=== PATIENT | female | born 1970 | race Caucasian/White ===

== ENCOUNTER 2019-02-12 09:45 | Emergency (ER) | payer OTHER ==
[2019-02-12 10:18] LABS: #Eosinphils 0.1 thou/uL (0.0-0.7); #Lymphocytes 1.4 thou/uL (1.20-3.40); #Monocytes 0.4 thou/uL (0.11-0.59); #Neutrophils 2.4 thou/uL (1.40-6.50); %Basophils 0.4 % (0.0-1.0); %Eosinophils 1.6 % (0.0-10.0); %Lymphocytes 32.9 % (21.0-51.0); %Monocytes 9.2 % (0.0-10.0); %Neutrophils 55.9 % (42.0-75.0); Hemoglobin 12.8 g/dL (12.0-16.0); Mean Corpuscular HGB CONC 33.3 g/dL (32.0-36.0); Mean Corpuscular Volume 96.3 fL (78.0-98.0); Mean Platelet Volume 9.2 fL (7.4-10.4); Platelet Count 155 thou/uL (130-400); White Blood Cell (WBC) Count 4.2 thou/uL (4.8-10.8)
[2019-02-12 10:44] LABS: ALT (SGPT) 20 U/L (8-55); AST (SGOT) 18 U/L (5-34); Albumin 4.3 g/dL (3.5-5.0); Alkaline Phosphatase 124 U/L (40-150); Anion Gap 16 mmol/L (10-20); BUN (Urea Nitrogen) 15 mg/dL (7.0-18.7); Bilirubin, Total 0.8 mg/dL (0.2-1.2); CK (CPK) 75 U/L (29-168); Calc. Creatinine Clearance 0 mL/min (70-130); Calcium 9.3 mg/dL (7.8-10.44); Carbon Dioxide 24 mmol/L (22-29); Chloride 105 mmol/L (98-107); Estimated GFR-MDRD 86; Globulin 2.7 g/dL (2.4-3.5); Glucose 118 mg/dL (70-105); Magnesium 2.4 mg/dL (1.6-2.6); Potassium 4.5 mmol/L (3.5-5.1); Sodium 140 mmol/L (136-145)
[2019-02-12 10:48] LABS: Bilirubin Negative (Negative); Blood, Urine Negative (Negative); Clarity CLEAR (Clear); Glucose, Urine (Dipstick) Negative (Negative); Leukocyte Small (Negative); Nitrite Negative (Negative); Protein, Urine (Dipstick) Negative (Neg-Trace); Specific Gravity, Urine 1.003 (1.002-1.036); Urobilinogen 0.2 mg/dL (0.2-1.0); pH, Urine 7.5 (5.0-9.0)
[2019-02-12 10:58] LABS: Bacteria/HPF None Seen HPF (None Seen); Hyaline Casts/LPF NONE SEEN LPF (0-3 Hyaline); RBC/HPF None Seen HPF (0-3); Squamous Epithelial 0-3 HPF (0-3); WBC/HPF 0-3 HPF (0-3)
[2019-02-12] MEDS ORDERED: ISOVUE-370 76%-LOCM 1 ML ONE (11:27)
--- NOTE | 2019-02-12 11:28 | RAD ---
RADIOGRAPH CHEST 1 VIEW: DATE: 02/12/2019 HISTORY: 48-year-old female with palpitations and chest pain FINDINGS: There are no airspace densities, pulmonary edema, pneumothorax, or cardiomegaly. The lateral costophr enic angles are sharp. IMPRESSION: No acute cardiopulmonary findings.
--- NOTE | 2019-02-12 14:13 | CT ---
CT ANGIOGRAM OF CHEST: Date: 02/12/19 HISTORY: Chest pain. Patient has a history of liver cancer. COMPARISON: None. TECHNIQUE: CT angiogram of chest performed in the axial plane. Three dimensional reformatted images are submitte d for interpretation. FINDINGS: No mediastinal mass, lymphadenopathy, or hematoma. Heart size is within normal limits. No pericardial fluid. Visualized aorta has a normal caliber. Multiple heterogeneous masses throughout the liver. Largest heterogeneous mass appears to be in a res idual right hepatic lobe measuring 4.8 x 4.8 cm. There is a left hepatic lobectomy. There appears to be surgery at the level of the stomach, possibly bariatric in origin. Visualized kidneys are unremarkable. Visualized spleen and adrenal glands are grossly unremarkable. There is a hypodense mass emanating from the tail of the pancreas measuring 1.8 x 1.9 cm with attenua tion coefficient of 9 Hounsfield units. The possibility of a pancreatic cyst is raised. Confirmation with abdomen MRI or a pancreatic mass protocol CT can be performed. Adequate contrast opacification of the pulmonary arterial system to the level of the segmental arteri es. No filling defect to suggest thromboembolism. Trachea and central bronchi are patent. Dependent atelectatic changes. No suspicious masses or nodules in the left or right lung. No pleural effusion or pneumothorax. No lytic or blastic lesions in the osseous structures. IMPRESSION: 1. No evidence of pulmonary artery embolism to the level of the segmental arteries. 2. Multiple hepatic masses, worrisome for hepatic malignancy. 3. Hypodense mass emanating from the tail of the pancreas, which may represent a pancreatic cyst. Co nfirmation with pancreatic mass protocol CT or abdomen MRI can be performed on a nonemergent basis. POS: TIP
== END 2019-02-12 13:32 | disposition home or self-care (01) ==
LOC: ERS 09:45
DX: R00.2 Palpitations (principal); R16.0 Hepatomegaly, not elsewhere classified; K86.9 Disease of pancreas, unspecified; F17.210 Nicotine dependence, cigarettes, uncomplicated; F32.9 Major depressive disorder, single episode, unspecified; Z79.899 Other long term (current) drug therapy
CPT/HCPCS: 36415; 71045; 71275; 80053; 81003; 81015; 82550; 83735; 84443; 84484; 85025; 85379; 93005; Q9966

== ENCOUNTER 2019-02-27 08:14 | Day surgery (SDC) | payer OTHER ==
[2019-02-27] MEDS ORDERED: Fentanyl 100 MCG/2 ML VIAL ONE (08:28)
[2019-02-27] MEDS ORDERED: Midazolam HCl 2 mg/2 ml Vial ONE (08:28)
[2019-02-27] MEDS ORDERED: Sodium Bicarbonate 2.5 MEQ/5 ML VIAL ONE (08:28)
[2019-02-27] MEDS ORDERED: Lidocaine 1% PF 5 ML VIAL ONE (08:28)
[2019-02-27 09:00] LABS: #Basophils 0.1 thou/uL (0.0-0.2); #Eosinphils 0.1 thou/uL (0.0-0.7); #Lymphocytes 1.8 thou/uL (1.20-3.40); #Monocytes 0.3 thou/uL (0.11-0.59); #Neutrophils 2.3 thou/uL (1.40-6.50); %Basophils 1.6 % (0.0-1.0); %Eosinophils 1.7 % (0.0-10.0); %Lymphocytes 38.5 % (21.0-51.0); %Monocytes 7.5 % (0.0-10.0); %Neutrophils 50.8 % (42.0-75.0); Hemoglobin 12.2 g/dL (12.0-16.0); Mean Corpuscular HGB CONC 33.5 g/dL (32.0-36.0); Mean Corpuscular Volume 95.5 fL (78.0-98.0); Mean Platelet Volume 8.9 fL (7.4-10.4); Platelet Count 201 thou/uL (130-400); RBC Distribution Width 11.7 % (11.5-14.5); Red Blood Cell (RBC) Count 3.82 mill/uL (4.20-5.40); White Blood Cell (WBC) Count 4.6 thou/uL (4.8-10.8)
[2019-02-27 09:03] LABS: INR-International Normal Ratio 0.9; Prothrombin Time 12.6 SEC (12.0-14.7)
--- NOTE | 2019-02-27 11:23 | CT ---
CT ABDOMEN AND PELVIS WITH ORAL AND IV CONTRAST: Date: 02/27/19 HISTORY: Pancreatic tail mass. COMPARISON: CT abdomen and pelvis of 02/22/[address] pulmonary angiogram of 02/12/19. FINDINGS: The lung bases are clear. Postop changes of resection of the left lobe of the liver and part of the s tomach are again seen. Multiple heterogeneous masses in the liver noted on the CT pulmonary angiogram of 02/12/19 are again seen and are new since 2008, suspicious for metastatic disease. The low densit y mass in the tail of the pancreas has enlarged since 2008 and measures 2.3 x 2.2 x 2.0 cm. The splee n, adrenal glands, and kidneys are normal. No free air, free fluid, or lymphadenopathy is seen in the abdomen or pelvis. The small bowel loops are not abnormally dilated. A normal appearing appendix is present. A 2.0 cm lipoma is seen in the cecum. There is no evidence of aneurysmal dilatation of the abdominal aorta. There are postop changes of hys terectomy. IMPRESSION: 1. Findings are suspicious for hepatic metastases. 2. Interval enlargement of the pancreatic tail mass since 02/22/09. 3. Lipoma in the cecum. POS: TPC
[2019-02-27 11:42] VITALS: BP 145/85; TEMP 98
--- NOTE | 2019-02-27 15:42 | CT ---
CT-guided biopsy of liver mass: DATE: 02/27/2019 HISTORY: 48-year-old female with history of neuroendocrine tumor presents with multiple hepatic masses and a m ass at the tail of the pancreas. TECHNIQUE: Signed informed consent obtained. Patient placed supine on CT table. The most anteriorly located live r mass targeted. Right lateral intercostal approach. Overlying skin prepared and draped in usual sterile fashion. 25-gauge needle used to apply buffered lidocaine superficially, then deeply into the intercostal muscle and liver capsule. 17-gauge introducer needle advanced under step CT guidance to the lateral edge of the targeted mass. 18-gauge biopsy needle advanced in coaxial fashion through the introducer needle. Biopsy gun fired. 3.5 cm long 18-gauge core tissue sample placed on slide and given to pathology. Preliminary touch preparation analysis result is positive for neoplasm. 2 ple dgets of Gelfoam injected into introducer needle. Needle removed. Patient tolerated the procedure well. Postbiopsy scan demonstrates no hematoma or any other complication. IMPRESSION: Technically successful 18-gauge 3.5 cm core biopsy X1 of one of the multiple hepatic masses. Prelimin jm results are positive for neoplasm.
== END 2019-02-27 13:45 | disposition home or self-care (01) ==
LOC: RAD 08:14
PROVIDERS: ATTEND Internal Medicine Hematology & Oncology
PROC: 0FB03ZX Excision of Liver, Percutaneous Approach, Diagnostic (ICD-10-PCS; principal; 2019-02-27)
DX: C22.9 Malignant neoplasm of liver, not specified as primary or secondary (principal); K86.9 Disease of pancreas, unspecified; H66.90 Otitis media, unspecified, unspecified ear; F17.200 Nicotine dependence, unspecified, uncomplicated; F41.9 Anxiety disorder, unspecified; F32.9 Major depressive disorder, single episode, unspecified; I47.1 Supraventricular tachycardia; Z79.899 Other long term (current) drug therapy
CPT/HCPCS: 36415; 47000; 74178; 77012; 85025; 85610; 85730; 88307; 88333; 88341; 88342; 88360; J2001; J2250; J3010

== ENCOUNTER 2019-05-26 08:38 | Outpatient (CLI) | payer OTHER, SELFPAY ==
--- NOTE | 2019-05-26 10:45 | CT ---
EXAM: CT of the chest with contrast CT of the abdomen and pelvis without and with contrast HISTORY: Neuroendocrine tumor of the liver. Pancreatic mass. COMPARISON: 02/27/2019 TECHNIQUE: 1. Multiple contiguous axial images were obtained in a CT the chest with contrast. Coronal and sagitt al reformats were performed. 2. Multiple contiguous axial images were obtained and a CT of the abdomen and pelvis without and with contrast. Coronal and sagittal reformats were performed. Oral contrast was administered. FINDINGS: CT CHEST: HEART: Normal in size without focal cardiac abnormality MEDIASTINUM: No hilar or mediastinal lymphadenopathy. LUNGS: No focal infiltrates, nodules, or masses. PLEURAL SPACE: No pneumothorax or pleural effusion. CHEST WALL SOFT TISSUES: Unremarkable CT ABDOMEN/PELVIS: ABDOMEN: LIVER: Multiple stable hypodense masses scattered throughout the liver with peripheral enhancement. T he largest measures 6.2 cm in greatest dimension. BILE DUCTS: Normal caliber. GALLBLADDER: No calcified gallstones. Normal caliber wall. PANCREAS: Stable 2.3 cm cystic lesion in the tail the pancreas. No obvious enhancement of the wall of this cystic structure is seen. SPLEEN: within normal limits. ADRENALS: within normal limits. KIDNEYS: within normal limits. PELVIS: REPRODUCTIVE ORGANS: Status post hysterectomy URETERS: within normal limits. BLADDER: within normal limits. PERITONEUM: No ascites or free air, no fluid collection. BOWEL: Normal caliber. Postsurgical changes in the stomach. MESENTERY AND RETROPERITONEUM: No enlarged mesenteric or retroperitoneal lymph nodes. VESSELS: Normal. ABDOMINAL WALL: within normal limits. OSSEOUS STRUCTURES: Degenerative changes in the spine. IMPRESSION: 1. Stable hepatic masses most likely represent metastatic disease to the liver 2. Stable cystic lesion in the tail the pancreas.
[2019-05-26] MEDS ORDERED: Iopamidol 370 76% 100 ML VIAL ONE (10:48)
== END 2019-05-26 08:39 | disposition home or self-care (01) ==
LOC: CT 08:38
PROVIDERS: ATTEND Internal Medicine Hematology & Oncology
DX: C7B.02 Secondary carcinoid tumors of liver (principal); K86.89 Other specified diseases of pancreas; K86.2 Cyst of pancreas
CPT/HCPCS: 71260; 72193; 74170; Q9967

== ENCOUNTER 2019-08-25 09:04 | Outpatient (CLI) | payer OTHER, SELFPAY ==
[2019-08-25] MEDS ORDERED: Iopamidol 370 76% 100 ML VIAL ONE (11:06)
--- NOTE | 2019-08-25 11:32 | CT ---
CT chest with IV contrast CT abdomen and pelvis with IV and oral contrast HISTORY: Liver tumors. Pancreas mass. Follow-up. COMPARISON: 05/26/2019. FINDINGS: No parenchymal lung mass or mediastinal adenopathy evident. Multiple lobular low-density and partially cystic masses throughout the remaining right liver lobe ar e unchanged in size and appearance from the previous exam. The largest is far anterior and measures up to 6.7 cm greatest oblique diameter on the axial images. No new liver masses are evident. The oval cyst at the posterior aspect of the pancreatic tail is unchanged in appearance at 2.2 cm. Inferior vena cava filter is very highly positioned within the inferior vena cava, approaching the ri ght atrium. Postoperative changes of the stomach evident. No enlarged lymph nodes or free fluid. Urinary bladder is incompletely distended. There are degenerative changes of the lumbar spine. Ill-defined sclerotic lesion within the right iliac bone is stable and exams dating back to 02/22/2009. IMPRESSION: Stable CT appearance of the multiple lobular low-density liver masses and pancreatic cyst . No new abnormalities are demonstrated.
== END 2019-08-25 09:05 | disposition home or self-care (01) ==
LOC: CT 09:04
PROVIDERS: ATTEND Internal Medicine Hematology & Oncology
DX: C7B.02 Secondary carcinoid tumors of liver (principal); K86.89 Other specified diseases of pancreas; K76.89 Other specified diseases of liver; K86.2 Cyst of pancreas
CPT/HCPCS: 71260; 74177; Q9967

== ENCOUNTER 2019-09-22 11:42 | Outpatient (CLI) | payer OTHER ==
--- NOTE | 2019-09-23 15:45 | NM ---
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 COMPARISON: CT 08/25/2019. FINDINGS: Throughout the liver, abnormal uptake is associated with almost all of the portions of the multiple heterogeneous masses. One exception is the most cystic component of the mass at the lateral aspect of the right liver lobe. Outside of the liver, no areas of abnormal uptake are reliably demonstrated. There is no abnormal upt oscar associated with the cystic lesion at the pancreatic tail. IMPRESSION: Positive for carcinoid/neuroendocrine tumor throughout the liver, correlating with the he terogeneous low density masses. No abnormal uptake is seen outside of the liver.
== END 2019-09-22 11:43 | disposition home or self-care (01) ==
LOC: NM 11:42
PROVIDERS: ATTEND Internal Medicine Hematology & Oncology
DX: C7B.02 Secondary carcinoid tumors of liver (principal)
CPT/HCPCS: 78802; 78803; A4641; A9572

== ENCOUNTER 2019-12-05 11:12 | Outpatient (CLI) | payer MEDICAID ==
--- NOTE | 2019-12-05 11:33 | RAD ---
EXAM: Chest PA and lateral: HISTORY: Chest pain COMPARISON: none FINDINGS: Lung hammer are clear. Vascular markings are normal. Heart and mediastinum appear unremarkable. Osseous structures are unremarkable. IMPRESSION: Unremarkable chest
== END 2019-12-05 11:13 | disposition home or self-care (01) ==
LOC: BICRAD 11:12
PROVIDERS: ATTEND Internal Medicine Hematology & Oncology
DX: R05 Cough (principal); R07.81 Pleurodynia
CPT/HCPCS: 71046

== ENCOUNTER 2020-01-22 08:40 | Outpatient (CLI) | payer MEDICAID, OTHER ==
[2020-01-22] MEDS ORDERED: Iopamidol-370 76% 500 ML 1 ML ONE (09:18)
--- NOTE | 2020-01-22 11:07 | CT ---
CT ABDOMEN AND PELVIS WITH IV CONTRAST: Date: 01/22/2020 Oral contrast was administered. Multiplanar reconstruction. INDICATION: Secondary carcinoid tumor of liver. Prior liver resection, cholecystectomy, and hysterectomy. Comparison made to CT abdomen and pelvis dated 08/25/2019. FINDINGS: Lung bases clear. Numerous lobulated low density liver lesions are again seen. These are partially cystic as described on prior exam. The lesions are reviewed and measured on coronal imaging. Multiple adjacent low densit y foci in the anterior superior right lobe are again seen and appear stable in size and appearance wi th total measurements on coronal images measuring up to 6.0 cm. There is a central low density lesion which is essentially unchanged measuring approximately 4.0 cm. In the peripheral lower right lobe, there is a rounded cystic mass which has decreased in size. It me asures 3.1 cm today. It previously measured 4.4 cm. Abutting this cystic mass and slightly inferior is an irregularly shaped low attenuation lesion which appears stable in size measuring 3.3 cm craniocaudal dimension. There are other scattered smaller lesions which appear stable. The spleen is unremarkable. The cystic mass in the tail of the pancreas is unchanged in size and appe arance. Small bowel loops appear normal caliber. Colon is nondistended and poorly evaluated. The adrenal glands and kidneys are unremarkable and stable. Aorta normal caliber. No evidence of adriano opathy. Osseous structures unremarkable and stable in appearance. Tiny focus of sclerosis in the left femoral head, right ilium, and in the L2 vertebra are stable. IMPRESSION: 1. There has been decrease in size of a cystic mass in the peripheral right lobe of liver when hunter red to prior study. The other liver masses appear stable as described above. 2. The pancreatic cystic mass is stable. 3. No acute finding or interval change apparent. POS: AGW
== END 2020-01-22 08:41 | disposition home or self-care (01) ==
LOC: BICCT 08:40
PROVIDERS: ATTEND Internal Medicine Hematology & Oncology
DX: C7B.02 Secondary carcinoid tumors of liver (principal); K86.2 Cyst of pancreas; K76.89 Other specified diseases of liver
CPT/HCPCS: 74177; Q9967

== ENCOUNTER 2020-06-09 10:38 | Outpatient (CLI) | payer MEDICARE, MEDICAID ==
--- NOTE | 2020-06-09 12:48 | CT ---
Exam: Chest CT with contrast Abdomen CT with contrast Pelvic CT with contrast HISTORY: Resection for multiple hepatic tumors. Patient is undergoing chemotherapy. Evaluate for resp onse or progression. Right lower quadrant pain. Pain between her shoulders. Secondary carcinoid tumors of liver. Correlation: Octreotide scan 09/22/2019. COMPARISON: Chest, abdomen, and pelvic CT 08/25/2019, abdomen and pelvic CT 01/22/2020. FINDINGS: Chest CT: Mediastinum: No mass, lymphadenopathy or hematoma. Aorta: Normal caliber. No periaortic fat stranding. Heart: Normal heart size. No significant pericardial fluid. Trachea and central bronchi: Patent. Pleural spaces: No pleural effusion. Right lung: Dependent atelectatic changes. No suspicious masses, consolidation or nodules. Left lung:Dependent atelectatic changes. No suspicious masses, consolidation or nodules. Pneumothorax: None. Abdomen CT: Gallbladder: Surgically absent. Portal vein: Patent. Liver: Partial resection of the left hepatic lobe. Heterogeneously enhancing mass involving the right hepatic lobe measuring 6.5 x 5.9 cm, previously measuring 5.9 x 5.5 cm. Heterogeneously dense enhancing mass in the right hepatic lobe measures 3.8 x 3.4 cm, previously measuring 2.9 x 4.0 cm. Hy podense enhancing mass in the right hepatic lobe measures 2.1 x 1.3 cm, previously measuring 2.5 x 1.5 cm. Preserved noted well-circumscribed hypodense mass currently measures 1.8 x 1.9 cm, previously measuring 2.9 x 2.9 cm. Additional hypodensities in the posterior segment of the right hepatic lobe are noted. There is a hypodense component that measures 2.2 x 2.1 cm, previously measuring 2.5 x 2.5 cm.. Spleen: Appropriate enhancement. Pancreas: Stable hypodensity at the tail of the pancreas, measuring 2.3 x 1.7 cm. The lesion previous ly measured 2.1 x 1.7 cm. Adrenal glands: Appropriate enhancement. Lymphadenopathy: No gastrohepatic, retrocrural or periportal lymphadenopathy. Kidneys: No evidence of obstructive uropathy. Nonobstructing 1 mm calculus in the right renal pelvis. Mesentery: No mass, lymphadenopathy, free air or free fluid. Alimentary canal: Evidence of previous bariatric surgery. No evidence of a small bowel obstruction. N ormal ileocecal junction. Normal caliber appendix. Scattered fecal material in a nondistended, nondilated colon. Occasional diverticulum. No diverticulitis. Anterior abdominal wall: Previous hernia repair is noted. Pelvis CT: No mass, lymphadenopathy, free air or free fluid. No abnormality with regards to the urinary bladder. Uterus is surgically absent. Presacral fat is preserved. Osseous structures:No lytic or blastic lesions within the osseous structures. IMPRESSION: 1. Evidence of previous resection of the left hepatic lobe. 2. Stable cystic mass at the tail the pancreas. 3. Mixed response to therapy with regards to the liver. Some of the peripherally enhancing lesions mittal ve increased in size while additional predominantly hypodense lesions have decreased in size. Transcribed Date/Time: 06/09/2020 1:35 PM
[2020-06-09] MEDS ORDERED: Iopamidol 370 76% 100 ML VIAL ONE (16:17)
== END 2020-06-09 10:39 | disposition home or self-care (01) ==
LOC: BICCT 10:38
PROVIDERS: ATTEND Internal Medicine Hematology & Oncology
DX: C7B.02 Secondary carcinoid tumors of liver (principal); C80.1 Malignant (primary) neoplasm, unspecified; K86.89 Other specified diseases of pancreas; K76.9 Liver disease, unspecified; Z98.890 Other specified postprocedural states
CPT/HCPCS: 71260; 74177; Q9967